=== PATIENT | female | born 1950 | race Two or more races ===

== ENCOUNTER 2016-11-17 17:51 | Emergency (ER) | payer MEDICARE, OTHER ==
[~2016-11-17] VITALS: Ht 154.9 cm; Wt 64.4 kg
[~2016-11-17 17:51] MED LIST: SULF1TAB48 PO
--- NOTE | 2016-11-17 18:48 | NUR ---
BB SELF FOR FEVER AND DRY COUGH SINCE LAST NIGHT. NO MEDS TAKEN FOR FEVER. CURRENTLY TAKING CIPRO ABX. SEEN BY PA FOR EVAL. NOTED TACHY. SAFETY AND COMFORT MEASURES PROVIDED. WILL MONITOR.
[2016-11-17] MEDS ORDERED: ACETAMINOPHEN 325 MG TABLET ONE (19:00)
[2016-11-17] MEDS ORDERED: ACETAMINOPHEN 325 MG TABLET PO ONE (19:00)
[2016-11-17 19:29] LABS: APPEARANCE,URINE Clear (CLEAR); BILIRUBIN,URINE Negative (NEGATIVE); BLOOD, URINE Negative Ery/uL (NEGATIVE); COLOR,URINE Yellow (YELLOW); KETONES,URINE Trace (NEGATIVE); LEUKOCYTE ESTERASE ,URINE Negative (NEGATIVE); NITRITE, URINE Negative (NEGATIVE); PROTEIN,URINE Trace mg/dl (NEGATIVE); UGLUCOSE Negative (NEGATIVE); UROBILINOGEN,URINE 0.2 EU/dL (0.2)
[2016-11-17 19:43] LABS: BACTERIA,URINE Few /HPF (None Seen); MUCUS,URINE Few /LPF (None Seen); RBC,URINE 0-2 /HPF (0-2); SQUAMOUS EPITHELIAL CELL,UR Many /HPF (None Seen); URINE AMORPHOUS URATE Few /HPF (None Seen)
--- NOTE | 2016-11-17 20:22 | NUR ---
Patient discharged to home in stable condition. Written and verbal after care instructions given. Patient verbalizes understanding of instruction.
[2016-11-17 20:23] VITALS: BP 128/78
== END 2016-11-17 20:24 | disposition home or self-care (01) ==
LOC: ER 17:54
DX: N39.0 Urinary tract infection, site not specified (principal); J06.9 Acute upper respiratory infection, unspecified; I10 Essential (primary) hypertension; J45.909 Unspecified asthma, uncomplicated; Z90.710 Acquired absence of both cervix and uterus; Z90.49 Acquired absence of other specified parts of digestive tract
CPT/HCPCS: 81000-TC; A4606; Z7610

== ENCOUNTER 2017-04-23 16:54 | Inpatient (IN) | payer MEDICARE, OTHER ==
[~2017-04-23] VITALS: Ht 154.9 cm; Wt 68.0 kg
--- NOTE | 2017-04-23 17:10 | NUR ---
PRESENTS TO ER C/O LOWER ABDOMINAL PAIN x 1 WEEK. ALSO C/O NAUSEA. A/OX 4. BREATHING EVEN AND UNLABORED. NO SOB. VITALS STABLE. SAFETY AND COMFORT MEASURES IN PLACE. AWAITING MD ORDERS.
--- NOTE | 2017-04-23 17:20 | NUR ---
NEW IV STARTED ON RAC, 20 G. BLOOD DRAWN AND SENT TO LAB.
[2017-04-23] MEDS ORDERED: HYDROMORPHONE INJ 2 MG/ML DISP.SYRIN IV ONE (17:30)
[2017-04-23] MEDS ORDERED: IV NS 0.9% 1,000 ML BAG IV ONE (17:30)
[2017-04-23] MEDS ORDERED: ONDANSETRON HCL/PF 4 MG/2 ML VIAL IVP ONE (17:30)
[2017-04-23 17:40] LABS: BASOPHILS # (AUTO) 0.1 /CMM (0.0-0.2); BASOPHILS % (AUTO) 1.5 % (0.0-2.0); EOSINOPHILS # (AUTO) 0.1 /CMM (0.0-0.7); EOSINOPHILS % (AUTO) 0.9 % (0.0-6.0); HEMATOCRIT 36 % (33-45); LYMPHOCYTES # (AUTO) 1.2 /CMM (0.8-4.8); LYMPHOCYTES % (AUTO) 15.6 % (20.0-44.0); MEAN CORPUSCULAR HEMOGLOBIN 32 PG (26.0-33.0); MEAN CORPUSCULAR HGB CONC 36 g/dl (31.0-36.0); MEAN CORPUSCULAR VOLUME 90 fL (82-100); MONOCYTES # (AUTO) 0.4 /CMM (0.1-1.30); NEUTROPHILS # (AUTO) 5.7 /CMM (1.8-8.9); PLATELET COUNT (AUTO) 184 /CMM (150-450); RDW COEFFICIENT OF VARIATION 12.3 (11.5-15.0); RED BLOOD CELL COUNT(AUTO) 4.04 MIL/uL (4.0-5.2); WHITE BLOOD COUNT (AUTO) 7.5 K/uL (4.3-11.0)
[2017-04-23 17:47] LABS: CALCIUM, SERUM 8.7 mg/dL (8.5-10.1); CREATININE 0.7 mg/dL (0.6-1.3); POTASSIUM 3.7 mmol/L (3.5-5.1)
[2017-04-23 17:52] LABS: APPEARANCE,URINE Clear (CLEAR); BILIRUBIN,URINE Negative (NEGATIVE); BLOOD, URINE Negative Ery/uL (NEGATIVE); COLOR,URINE Yellow (YELLOW); KETONES,URINE Negative (NEGATIVE); LEUKOCYTE ESTERASE ,URINE Negative (NEGATIVE); NITRITE, URINE Negative (NEGATIVE); PH,URINE 7.5 (5.0-8.0); PROTEIN,URINE Negative (NEGATIVE); UGLUCOSE Negative (NEGATIVE); UROBILINOGEN,URINE 0.2 EU/dL (0.2)
[2017-04-23 17:54] LABS: ALBUMIN 3.7 g/dL (3.4-5.0); BILIRUBIN,DIRECT 0.1 mg/dL (0.0-0.2); BILIRUBIN,TOTAL 0.3 mg/dL (0.2-1.0); TOTAL PROTEIN, SERUM 8.1 g/dL (6.4-8.2)
[2017-04-23] MEDS ORDERED: ONDANSETRON HCL/PF 4 MG/2 ML VIAL ONE (17:54)
[2017-04-23] MEDS ORDERED: HYDROMORPHONE INJ 0.5 MG/0.5 ML SYRINGE ONE (17:55)
[2017-04-23] MEDS ORDERED: HYDROMORPHONE INJ 0.5 MG/0.5 ML SYRINGE IV ONE (18:00)
--- NOTE | 2017-04-23 18:03 | NUR ---
PATIENT TAKEN TO CT VIA STRETCHER.
--- NOTE | 2017-04-23 18:13 | NUR ---
PATIENT RETURNED FROM CT
[2017-04-23] MEDS ORDERED: AMOX250C PO (18:30)
[2017-04-23] MEDS ORDERED: GABA-534 PO (18:30)
[2017-04-23] MEDS ORDERED: OMEG1CAP55 PO (18:30)
[2017-04-23] MEDS ORDERED: CYCL30DR EACHEYE (18:30)
[2017-04-23] MEDS ORDERED: FLUT1DIS3 IH (18:30)
--- NOTE | 2017-04-23 19:02 | NUR ---
report given to wayne lee for SYEDA.
[2017-04-23] MEDS ORDERED: IV NS 0.9% 1,000 ML IV ONE (20:00)
[2017-04-23] MEDS ORDERED: PIPERACILLIN /TAZOBACTAM 3.375 G in IV D5W 50 ML IV ONE (20:00)
[2017-04-23] MEDS ORDERED: PIPERACILLIN /TAZOBACTAM 3.375 G VIAL IV ONE (20:07)
--- NOTE | 2017-04-23 20:45 | NUR ---
BED 205-1
--- NOTE | 2017-04-23 20:57 | NUR ---
REPORT GIVEN TO MS NURSE
[2017-04-23 21:15] VITALS: BP 143/92
--- NOTE | 2017-04-23 21:15 | NUR ---
RN NOTES RECEIVED PATIENT FROM ER FOR DX DIVERTICULITIS. AO X 3, ABLE TO MAKE NEEDS KNOWN. NO ACUTE DISTRESS NOTED. 3/10 ABDOMINAL PAIN AT THIS TIME. IV SITE PATENT, INTACT; FLUSHED. SKIN INTACT. ORIENTED TO ROOM AND UNIT. SAFETY REMINDERS GIVEN. ON LOW BED WITH BILATERAL UPPER SIDE RAILS UPS. CALL LINK WITHIN EASY REACH. WILL CONTINUE TO MONITOR. WAITING FOR ADMISSION ORDERS.
[2017-04-23 22:00] VITALS: BP 143/92
[2017-04-23] MEDS ORDERED: Potassium Chloride 20 MEQ in IV D5/0.45 NACL 1,000 ML IV PRN (22:30)
[2017-04-23] MEDS ORDERED: MORPHINE SULFATE INJ 2 MG/ML DISP.SYRIN IV PRN (22:30)
[2017-04-23] MEDS ORDERED: hydrALAZINE HCL 25 MG TABLET PO PRN (22:30)
[2017-04-23] MEDS ORDERED: ONDANSETRON HCL/PF 4 MG/2 ML VIAL IVP PRN (22:30)
[2017-04-23] MEDS ORDERED: ZOLPIDEM TARTRATE 5 MG TABLET PO PRN (22:30)
[2017-04-23] MEDS: ALBUTEROL FS 2.5 MG/3 ML VIAL.NEB NEB SCH (23:04)
--- NOTE | 2017-04-23 23:23 | NUR ---
RN NOTES LEFT A MESSAGE FOR AFTER HOURS PHARMACY TO VERIFY NEW MED ORDERS.
[2017-04-23] MEDS ORDERED: IV PREMIX D5 1/2NS + KCL 1,000 ML IV ONE (23:41)
[2017-04-24] MEDS: Potassium Chloride 20 MEQ in IV D5/0.45 NACL 1,000 ML IV SCH ×2 (00:27→14:01)
[2017-04-24] MEDS ORDERED: METRONIDAZOLE 500MG/ NS 100ML 100 ML IV ONE (00:56)
[2017-04-24] MEDS ORDERED: LEVOFLOXACIN 500 MG /D5W 100ML 100 ML IV ONE (00:56)
[2017-04-24] MEDS: LEVOFLOXACIN 500 MG /D5W 100ML 500 MG in PREMIX 1 EA IV SCH ×2 (01:02→23:27)
[2017-04-24] MEDS: ALBUTEROL FS 2.5 MG/3 ML VIAL.NEB NEB SCH ×5 (02:51→19:30)
[2017-04-24] MEDS: METRONIDAZOLE 500MG/ NS 100ML 500 MG in PREMIX 1 EA IV SCH ×3 (05:39→21:02)
[2017-04-24 06:40] LABS: BASOPHILS % (AUTO) 0.4 % (0.0-2.0); EOSINOPHILS % (AUTO) 0.2 % (0.0-6.0); HEMATOCRIT 36 % (33-45); HEMOGLOBIN 12.5 g/dL (11.5-14.8); LYMPHOCYTES # (AUTO) 0.8 /CMM (0.8-4.8); LYMPHOCYTES % (AUTO) 9.5 % (20.0-44.0); MEAN CORPUSCULAR HEMOGLOBIN 32 PG (26.0-33.0); MEAN CORPUSCULAR HGB CONC 34 g/dl (31.0-36.0); MEAN CORPUSCULAR VOLUME 92 fL (82-100); MONOCYTES # (AUTO) 0.5 /CMM (0.1-1.30); MONOCYTES % (AUTO) 5.8 % (2.0-12.0); NEUTROPHILS # (AUTO) 6.9 /CMM (1.8-8.9); NEUTROPHILS % (AUTO) 84.1 % (43.0-81.0); PLATELET COUNT (AUTO) 167 /CMM (150-450); RDW COEFFICIENT OF VARIATION 13.4 (11.5-15.0); RED BLOOD CELL COUNT(AUTO) 3.95 MIL/uL (4.0-5.2); WHITE BLOOD COUNT (AUTO) 8.2 K/uL (4.3-11.0)
--- NOTE | 2017-04-24 06:57 | NUR ---
RN NOTES PATIENT ASLEEP, EASILY AROUSABLE. RESPIRATIONS EVEN. NO SIGNS OF PAIN AT THIS TIME. DUE MEDS GIVEN WITH NO ASE NOTED. NEEDS ATTENDED. SAFETY PRECAUTIONS AND COMFORT MEASURES IN PLACE. WILL GIVE REPORT TO DAY SHIFT FOR CONTINUITY OF CARE.
[2017-04-24 07:02] LABS: THYROID STIMULATING HORMONE 1.366 uIU/mL (0.358-3.74)
[2017-04-24] MEDS: PANTOPRAZOLE 40 MG TABLET.DR PO SCH (07:44)
--- NOTE | 2017-04-24 07:47 | NUR ---
MS RN NOTES PATIENT IN BED, AWAKE. A/O X4, COOPERATIVE. CURRENTLY NPO EXCEPT MEDS ORDERED. IVC IN RIGHT AC PATENT AND INTACT, IVF D5 1/2NS + 20MEQ INFUSING AT 80ML/HR, DENIES ANY PAIN. CALL LIGHT WITHIN REACH. WILL CONT TO MONITOR.
[2017-04-24 07:52] LABS: ALBUMIN 3.3 g/dL (3.4-5.0); BILIRUBIN,TOTAL 0.6 mg/dL (0.2-1.0); CALCIUM, SERUM 8.7 mg/dL (8.5-10.1); CREATININE 0.7 mg/dL (0.6-1.3); MAGNESIUM 2.1 mg/dL (1.8-2.4); PHOSPHORUS 2.6 mg/dL (2.5-4.9); POTASSIUM 3.8 mmol/L (3.5-5.1); TOTAL PROTEIN, SERUM 7.6 g/dL (6.4-8.2)
[2017-04-24 08:00] VITALS: BP 148/82
[2017-04-24] MEDS ORDERED: FLUTICASONE/SALMETEROL DISKUS IH SCH (09:00)
[2017-04-24] MEDS ORDERED: FLUTICASONE/VILANTEROL 1 EACH BLST.W.DEV IH SCH (09:00)
[2017-04-24] MEDS: FLUTICASONE/VILANTEROL 1 EACH BLST.W.DEV IH SCH (09:36)
[2017-04-24] MEDS: ACETAMINOPHEN 325 MG TABLET PO PRN ×2 (12:24→21:12)
[2017-04-24 16:00] VITALS: BP_SYST 139; BP_DIAS 69; BP_DIAS 79
--- NOTE | 2017-04-24 16:09 | NUR ---
RT NOTE PT REFUSED BREATHING TX TROUGH OUT SHIFT. PT STATES SHE DOESNT NEED THEM, THEY MAKE HER NAUSEOUS AND SHE HAS A INHALER AT BED SIDE. PT SPO2 AND BREATH SOUNDS MONITORED. NO DISTRESS NOTED. Addendum: 04/24/17 at 1611 by PRICILLA GONZALEZ RT Amended: Links added.
--- NOTE | 2017-04-24 18:44 | NUR ---
MS RN CLOSING NOTES PATIENT IN BED, A/O X4. ON CLEAR LIQUIDS DIET, TOLERATED WELL, NO EPISODE OF VOMITING OR NAUSEA. AMBULATE TO THE BATHROOM, STEADY GAIT AND BALANCE, REPORTED NO BOWEL MOVEMENT TODAY. MEDICATED WITH TYLENOL 650MG PO PRN FOR HEADACHE, EFFECTIVE. CALL LIGHT WITHIN REACH. POSSIBLE DC TOMORROW PER MD. WILL ENDORSE TO ONCOMING RN.
--- NOTE | 2017-04-24 19:35 | NUR ---
MS RN OPENING NOTES RECEIVED PATIENT IN BED RESTING COMFORTABLY, A/Ox4. ON RA, DENIES SOB, RESPIRATIONS EVEN AND UNLABORED. NO APPARENT DISTRESS OR DISCOMFORT NOTED AT THIS TIME. PATIENT IS AMBULATORY WITH STEADY GAIT, BRP. RIGHT AC HL PATIENT AND INTACT WITH IV FLUIDS INFUSING @ 80 ML/HR. PATIENT KEPT CLEAN AND COMFORTABLE. ON CLEAR LIQUID DIET, DENIES NAUSEA AND VOMITING AT THIS TIME. SAFETY MEASURES IN PLACE: CALL LIGHT WITHIN EASY REACH, BED IN LOW LOCKED POSITION, SIDE RAILS UP x2. WILL CONTINUE TO MONITOR.
--- NOTE | 2017-04-24 19:36 | NUR ---
pt refused tx. rn aware Addendum: 04/24/17 at 1936 by SUJATA COLLINS RT Amended: Links added.
[2017-04-24 20:00] VITALS: BP 166/80
[2017-04-25] MEDS: ALBUTEROL FS 2.5 MG/3 ML VIAL.NEB NEB SCH ×7 (00:02→23:30)
[2017-04-25] MEDS: Potassium Chloride 20 MEQ in IV D5/0.45 NACL 1,000 ML IV SCH ×2 (02:00→16:43)
[2017-04-25] MEDS: METRONIDAZOLE 500MG/ NS 100ML 500 MG in PREMIX 1 EA IV SCH ×3 (05:44→21:37)
--- NOTE | 2017-04-25 07:13 | NUR ---
MS RN CLOSING NOTES PATIENT IN BED ASLEEP, EASILY AROUSED BY VERBAL STIMULI, A/Ox4. ON RA, DENIES SOB, RESPIRATIONS EVEN AND UNLABORED. NO APPARENT DISTRESS OR DISCOMFORT NOTED AT THIS TIME. PATIENT AMBULATED TO BATHROOM WITH STEADY GAIT, BRP. RIGHT AC HL PATIENT AND INTACT WITH IV FLUIDS INFUSING @ 80 ML/HR. PATIENT KEPT CLEAN AND COMFORTABLE. ON CLEAR LIQUID DIET, DENIES NAUSEA AND VOMITING AT THIS TIME. SAFETY MEASURES IN PLACE: CALL LIGHT WITHIN EASY REACH, BED IN LOW LOCKED POSITION, SIDE RAILS UP x2. WILL ENDORSE TO DAY SHIFT FOR CONTINUATION OF CARE. .
--- NOTE | 2017-04-25 07:47 | NUR ---
MS/RN Patient received Patient received from shift nurse manager. A/O X4, complaining of abdominal pain 5/10 at this time, medication administered as ordered. Call light within reach, side rails X2 in upright position. Will continue to monitor and ensure safety.
[2017-04-25 08:00] VITALS: BP 135/68
[2017-04-25] MEDS: PANTOPRAZOLE 40 MG TABLET.DR PO SCH (08:00)
[2017-04-25] MEDS: FLUTICASONE/VILANTEROL 1 EACH BLST.W.DEV IH SCH (08:00)
--- NOTE | 2017-04-25 09:10 | NUR ---
MS/consulting sales executive Morning medications administered.
[2017-04-25] MEDS ORDERED: TRAMADOL HCL 50 MG TABLET PO PRN (11:30)
--- NOTE | 2017-04-25 13:00 | NUR ---
MS/RN IVAB IVAB hung as ordered, no reaction observed.
--- NOTE | 2017-04-25 13:24 | NUR ---
MS/RN S/B Dr Seay Seen by Dr Seay - patient to remain in the hospital overnight as complaining of gas pain. New order given for tramadol as per patient, morphine is to strong. Awaiting pharmacy to verify order.
[2017-04-25 16:00] VITALS: BP 128/74
--- NOTE | 2017-04-25 18:18 | NUR ---
MS/RN End note No further nausea or vomiting since zofran was administered. IVF continue to infuse at 80ml/hr, no signs of infiltration see. Call light within reach, will continue to monitor and endorse to drum drier operator.
--- NOTE | 2017-04-25 19:00 | NUR ---
RN NOTES RECEIVED PT AWAKE, ALERT AND ORIENTED X4. ON ROOM AIR AND TOLERATED WELL WITH GOOD SATURATION. DENIES NAUSEA AND VOMITING, ABDOMINAL PAIN AT TOLERABLE LEVEL. IV ACCESS ON RIGHT AC PATENT AND INTACT WITH ONGOING IVF INFUSING WELL. PLAN OF CARE DISCUSSED WITH THE PT. WILL CONTINUE TO MONITOR PT.
[2017-04-25 20:00] VITALS: BP 131/69
[2017-04-25 22:00] VITALS: BP 131/69
[2017-04-25] MEDS: LEVOFLOXACIN 500 MG /D5W 100ML 500 MG in PREMIX 1 EA IV SCH (23:16)
[2017-04-26] MEDS: Potassium Chloride 20 MEQ in IV D5/0.45 NACL 1,000 ML IV SCH (02:45)
[2017-04-26] MEDS: ALBUTEROL FS 2.5 MG/3 ML VIAL.NEB NEB SCH ×4 (03:30→14:49)
[2017-04-26] MEDS: METRONIDAZOLE 500MG/ NS 100ML 500 MG in PREMIX 1 EA IV SCH ×2 (05:17→12:02)
--- NOTE | 2017-04-26 07:25 | NUR ---
RN NOTES PT SLEPT WELL OVERNIGHT. NO EPISODE OF NAUSEA AND VOMITING. ABDOMINAL PAIN AT TOLERABLE LEVEL. ALL DUE MEDS GIVEN. NO SIGNIFICANT CHANGE IN PT CONDITION NOTED. ENDORSED TO MORNING RN FOR CONTINUITY OF CARE.
--- NOTE | 2017-04-26 07:45 | NUR ---
MS/RN Patient received Patient received from manager risk. A/O X4, vital signs stable, in no distress, denies any pain or discomfort from gas pain. Safety measures in place, will continue to monitor and ensure safety.
[2017-04-26 08:00] VITALS: BP 115/71
[2017-04-26] MEDS: PANTOPRAZOLE 40 MG TABLET.DR PO SCH (08:27)
[2017-04-26] MEDS: FLUTICASONE/VILANTEROL 1 EACH BLST.W.DEV IH SCH (08:28)
--- NOTE | 2017-04-26 09:00 | NUR ---
MS/RN Medications Morning medications administered as ordered.
--- NOTE | 2017-04-26 09:24 | NUR ---
MS/RN Nausea Per patient, no nausea or vomiting following breakfast.
[2017-04-26] MEDS ORDERED: Potassium Chloride 20 MEQ in IV D5/0.45 NACL 1,000 ML IV PRN (10:12)
--- NOTE | 2017-04-26 10:55 | NUR ---
MS/RN Exit care Exit care prepared as for possible discharge today.
--- NOTE | 2017-04-26 13:46 | NUR ---
MS/RN IVAB IVAB hung as ordered, no reaction noted. Awaiting review by Dr Sue, for possible discharge.
--- NOTE | 2017-04-26 15:42 | NUR ---
MS/RN S/B Dr Sue Seen by Dr Sue - may be discharged to home today, prescription for levaquin wrote, needs to continue medication for 10 more days. Follow up with primary care doctor in 5-10 days.
[2017-04-26] MEDS ORDERED: LEVO500T75 PO (15:48)
--- NOTE | 2017-04-26 16:17 | NUR ---
MS/appraisal manager Patient discharged to home in stable condition, with instructions to return if experiencing any fever or sudden increase in pain. Heplock and name bands removed, all paperwork signed and copies provided. Escorted to main lobby by ROLA.
== END 2017-04-26 16:26 | disposition home or self-care (01) | DRG 391 ==
LOC: ER 16:56 → MEDSG2 21:01
PROVIDERS: ADMIT Internal Medicine; ATTEND Internal Medicine
DX: K57.20 Diverticulitis of large intestine with perforation and abscess without bleeding (principal); K65.9 Peritonitis, unspecified; Z68.28 Body mass index [BMI] 28.0-28.9, adult; E11.65 Type 2 diabetes mellitus with hyperglycemia; E78.5 Hyperlipidemia, unspecified; I10 Essential (primary) hypertension; J45.909 Unspecified asthma, uncomplicated; Z90.710 Acquired absence of both cervix and uterus; Z90.49 Acquired absence of other specified parts of digestive tract; Z87.442 Personal history of urinary calculi; Z79.899 Other long term (current) drug therapy; Q63.1 Lobulated, fused and horseshoe kidney; E66.9 Obesity, unspecified
CPT/HCPCS: 36415; 80048-TC; 80053-TC; 80061-TC; 80076-TC; 81000-TC; 83690-TC; 83735-TC; 84100-TC; 84443-TC; 85025-TC; 87081-TC; A4216; A4606; J1170; J1956; J2405; J2543; J3480; J3490; J7030; J7060; Z7610

== ENCOUNTER 2018-05-24 15:18 | Emergency (ER) | payer MEDICARE, MEDICAID ==
[~2018-05-24] VITALS: Ht 152.4 cm; Wt 68.0 kg
[~2018-05-24 15:18] MED LIST changes: +FLUT1DIS3 IH; +GABA-534 PO; +LEVO500T75 PO; +OMEG1CAP55 PO; -SULF1TAB48 PO
[2018-05-24] MEDS ORDERED: oxyCODONE HCL SR 10MG TAB.SR.12H PO SCH (16:30)
--- NOTE | 2018-05-24 17:00 | NUR ---
patient presented to the ER c/o left hand pain. on room air, breathing evenly and unlabored. kept comfortable. will continue to monitor accordingly.
--- NOTE | 2018-05-24 17:02 | NUR ---
patient wheeled for CT scan.
[2018-05-24] MEDS ORDERED: HYDROCODONE/APAP 5/325MG 1 EACH TABLET ONE (17:19)
[2018-05-24] MEDS ORDERED: HYDROCODONE/APAP 5/325MG 1 EACH TABLET PO ONE (17:30)
[2018-05-24 18:35] LABS: APPEARANCE,URINE SL CLOUDY (CLEAR); BILIRUBIN,URINE NEGATIVE (NEGATIVE); BLOOD, URINE NEGATIVE Ery/uL (NEGATIVE); COLOR,URINE YELLOW (YELLOW); KETONES,URINE NEGATIVE (NEGATIVE); LEUKOCYTE ESTERASE ,URINE TRACE (NEGATIVE); NITRITE, URINE NEGATIVE (NEGATIVE); PROTEIN,URINE NEGATIVE (NEGATIVE); UGLUCOSE NEGATIVE (NEGATIVE); UROBILINOGEN,URINE 0.2 EU/dL (0.2)
[2018-05-24 18:47] LABS: BACTERIA,URINE Few /HPF (None Seen); RBC,URINE 0-2 /HPF (0-2); SQUAMOUS EPITHELIAL CELL,UR Few /HPF (None Seen); WBC,URINE 0-2 /HPF (0-3)
[2018-05-24 18:51] VITALS: BP 145/81
--- NOTE | 2018-05-24 18:52 | NUR ---
Patient discharged to home in stable condition. Written and verbal after care instructions given. Patient verbalizes understanding of instruction.
== END 2018-05-24 18:52 | disposition home or self-care (01) ==
LOC: ER 15:19
DX: S62.621A Displaced fracture of middle phalanx of left index finger, initial encounter for closed fracture (principal); I10 Essential (primary) hypertension; M19.90 Unspecified osteoarthritis, unspecified site; J45.909 Unspecified asthma, uncomplicated; R51 Headache; Z90.710 Acquired absence of both cervix and uterus; Z90.49 Acquired absence of other specified parts of digestive tract; Z60.2 Problems related to living alone; Z79.899 Other long term (current) drug therapy; W01.0XXA Fall on same level from slipping, tripping and stumbling without subsequent striking against object, initial encounter; Y93.89 Activity, other specified; Y92.89 Other specified places as the place of occurrence of the external cause; Y99.8 Other external cause status
CPT/HCPCS: 70450-TC; 72100-TC; 73030-TC; 73080-TC; 73110; 73140-TC; 73502; 81000-TC

== ENCOUNTER 2019-01-02 16:26 | Emergency (ER) | payer MEDICARE, MEDICAID ==
[~2019-01-02] VITALS: Ht 152.4 cm; Wt 68.9 kg
--- NOTE | 2019-01-02 17:00 | NUR ---
PATIENT CAME IN TO THE ER C/O DIFFUSE ABDOMINAL PAIN W NAUSEA SINCE THIS AM. DIZZINESS X 2 HOURS. ON ROOM AIR, BREATHING EVENLY AND UNLABORED. CONNECTED TO THE MONITOR AND PULSE OX. WILL CONTINUE TO MONITOR ACCORDINGLY.
[2019-01-02 17:07] LABS: APPEARANCE,URINE Slightly Cloudy (CLEAR); BILIRUBIN,URINE MODERATE (NEGATIVE); BLOOD, URINE Negative Ery/uL (NEGATIVE); KETONES,URINE 15 (NEGATIVE); NITRITE, URINE Negative (NEGATIVE); PROTEIN,URINE 30 mg/dl (NEGATIVE); UGLUCOSE Negative (NEGATIVE)
[2019-01-02 17:08] LABS: COLOR,URINE AMBER (YELLOW)
--- NOTE | 2019-01-02 17:08 | NUR ---
patient wheeled to CT
[2019-01-02 17:09] LABS: LEUKOCYTE ESTERASE ,URINE 3+ (NEGATIVE)
[2019-01-02 17:09] LABS: BASOPHILS % (AUTO) 0.3 % (0.0-2.0); EOSINOPHILS % (AUTO) 0.4 % (0.0-6.0); HEMATOCRIT 41 % (33-45); HEMOGLOBIN 13.6 g/dL (11.5-14.8); LYMPHOCYTES # (AUTO) 0.7 /CMM (0.8-4.8); LYMPHOCYTES % (AUTO) 6.2 % (20.0-44.0); MEAN CORPUSCULAR HGB CONC 33 g/dl (31.0-36.0); MEAN CORPUSCULAR VOLUME 95 fL (82-100); MONOCYTES # (AUTO) 0.5 /CMM (0.1-1.30); MONOCYTES % (AUTO) 4.8 % (2.0-12.0); NEUTROPHILS % (AUTO) 88.3 % (43.0-81.0); PLATELET COUNT (AUTO) 185 /CMM (150-450); RED BLOOD CELL COUNT(AUTO) 4.35 MIL/uL (4.0-5.2); WHITE BLOOD COUNT (AUTO) 11.4 K/uL (4.3-11.0)
[2019-01-02 17:10] LABS: BACTERIA,URINE 1+ /HPF (None Seen); RBC,URINE 0-2 /HPF (0-2); SQUAMOUS EPITHELIAL CELL,UR Few /HPF (None Seen); WBC,URINE TOO NUMEROUS TO COUN /HPF (0-3)
[2019-01-02 17:21] LABS: CALCIUM, SERUM 10.2 mg/dL (8.5-10.1); CREATININE 0.7 mg/dL (0.6-1.3); POTASSIUM 3.7 mmol/L (3.5-5.1)
[2019-01-02 17:26] LABS: ALBUMIN 4.1 g/dL (3.4-5.0); BILIRUBIN,DIRECT 0.1 mg/dL (0.0-0.2); BILIRUBIN,TOTAL 0.6 mg/dL (0.2-1.0); TOTAL PROTEIN, SERUM 8.1 g/dL (6.4-8.2)
--- NOTE | 2019-01-02 17:26 | NUR ---
patient came back from ct
[2019-01-02] MEDS ORDERED: CEFTRIAXONE 1GM BAG (ER ONLY) 50 ML IV ONE ×2 (18:00→18:05)
[2019-01-02 19:09] VITALS: BP 128/81
--- NOTE | 2019-01-02 19:10 | NUR ---
Patient discharged to home in stable condition. Written and verbal after care instructions given. Patient verbalizes understanding of instruction.IV removed. Catheter intact and site benign. Pressure and 4x4 applied to site. No bleeding noted.
== END 2019-01-02 19:10 | disposition home or self-care (01) ==
LOC: ER 16:26
DX: N39.0 Urinary tract infection, site not specified (principal); R10.84 Generalized abdominal pain; I10 Essential (primary) hypertension; J45.909 Unspecified asthma, uncomplicated; R00.1 Bradycardia, unspecified; Z90.710 Acquired absence of both cervix and uterus; Z90.49 Acquired absence of other specified parts of digestive tract; Z60.2 Problems related to living alone; Z79.899 Other long term (current) drug therapy
CPT/HCPCS: 36415; 71045; 74176; 80048; 80076; 81001; 83605; 83690; 85025; 87040 ×2; 87086; 93005; 96365; 99284; J0696; 81000-TC; 87186-TC